=== PATIENT | male | born 1970 | race Caucasian/White ===

== ENCOUNTER 2022-04-07 10:37 | Emergency (ER) | payer MEDICARE ==
[2022-04-07 12:49] LABS: BUN/CREATININE RATIO 14 (0-10)
== END 2022-04-07 14:07 | disposition home or self-care (01) ==
LOC: ER1 10:37
PROVIDERS: Physician Assistant
DX: J02.9 Acute pharyngitis, unspecified (principal); Z20.822 Contact with and (suspected) exposure to COVID-19; F17.210 Nicotine dependence, cigarettes, uncomplicated
CPT/HCPCS: 0240U; 80053; 87081; 87880; 99283

== ENCOUNTER 2022-04-19 21:32 | Emergency (ER) | payer MEDICARE | END 2022-04-20 00:50 | disposition home or self-care (01) | LOC: ER1 21:32 | DX: J02.9 Acute pharyngitis, unspecified (principal); I10 Essential (primary) hypertension; F17.210 Nicotine dependence, cigarettes, uncomplicated; Z20.822 Contact with and (suspected) exposure to COVID-19 | CPT/HCPCS: 0240U; 99284 ==